=== PATIENT | male | born 1970 | race Caucasian/White ===

== ENCOUNTER → 2017-07-16 | Outpatient (CLI) | payer OTHER ==
--- NOTE | 2017-07-16 13:58 | DIAGNOSTIC IMAGING REPORT ---
VIDEO SWALLOW HISTORY: R13.10 Dysphagia TECHNIQUE: Video fluoroscopic evaluation of swallowing was performed in the AP and lateral projections by the speech pathology staff. The patient is fed nectar-thick and thin liquid barium, a barium coated wafer, and barium pudding. FLUOROSCOPY TIME: 1.6 minutes. A cine loop was submitted.. COMPARISON STUDY: None. FINDINGS: The initial swallow on the AP view demonstrates the barium passing along the right side of the hypopharynx. There is normal hyoid excursion and epiglottic deflection. No significant penetration or aspiration identified. Swallowing function is within normal limits. IMPRESSION: 1. No aspiration identified. Incidental note is made of the barium passing along the right side of the hypopharynx on the initial swallow. This is of uncertain clinical significance and could be related to patient positioning. 2. Please see the speech pathologist report for detailed findings and recommendations. Electronically signed by: Robert Schaefer M.D. 07/16/2017 1:57 PM Dictated Date/Time: 07/16/2017 1:53 PM
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
== END | disposition home or self-care (01) ==
LOC: C.RAD 12:50
PROVIDERS: ATTEND Physician Assistant
DX: R13.10 Dysphagia, unspecified (principal)

== ENCOUNTER → 2017-07-24 | Outpatient (CLI) | payer OTHER ==
--- NOTE | 2017-07-24 11:35 | DIAGNOSTIC IMAGING REPORT ---
(CHEST) THORAX WITHOUT CT DOSE: 912.00 mGy.cm CLINICAL HISTORY: 47 years-old Male with J98.4 Restrictive lung [id number] Chronic coughPatient scheduled. TECHNIQUE: Multiaxial CT images of the chest were performed without contrast. A dose lowering technique was utilized adhering to the principles of ALARA. COMPARISON: None. FINDINGS: No dominant thyroid nodule or pathologic appearing adenopathy identified. Heart is normal in size without pericardial effusion. No thoracic aortic aneurysm identified. There is no pneumothorax or pleural effusion identified. Evaluation of the lungs is limited secondary to respiratory motion. Calcific granuloma the left lower lobe as seen on image 187 series 4. Patchy bibasilar groundglass opacities suggest atelectasis. Linear subsegmental pleural based opacities of the left lung base suggest areas of scarring/atelectasis. No bronchiectasis, honeycombing or significant subpleural reticulation. High-grade narrowing involves the mid trachea at the level of T2 nicely seen on image 55 series 4 with moderate thickening at this area. No focal associated mass identified. No suspicious pulmonary nodules or masses identified. No acute abnormality of the imaged upper abdomen identified. Embolization coils are seen within the distribution of the splenic vein. Nonspecific stranding is seen adjacent to the superior pole left kidney. Soft tissues are unremarkable. Multiple chronic left-sided rib fractures. IMPRESSION: 1. High-grade narrowing of the mid trachea at the level of T2 with moderate tracheal wall thickening. No definite associated mass. Posttraumatic or iatrogenic etiology considered. 2. Limited evaluation of the lung bases secondary to respiratory motion. Mild subsegmental pleural-parenchymal scarring/atelectasis of the left lung base. No honeycombing, traction bronchiectasis or significant subpleural reticulation. 3. No focal airspace consolidation to suggest pneumonia. Electronically signed by: Andrew Zavala M.D. 07/24/2017 11:33 AM Dictated Date/Time: 07/24/2017 11:13 AM
== END | disposition home or self-care (01) ==
LOC: C.CTS 10:38
PROVIDERS: ATTEND Physician Assistant
DX: J98.4 Other disorders of lung (principal); R05 Cough; J39.8 Other specified diseases of upper respiratory tract

== ENCOUNTER → 2017-09-17 | Outpatient (CLI) | payer OTHER ==
[~2017-09-17] MED LIST: CITA20TA9 PO; LISI-461 PO; PRLSR20 PO; RANI150T85 PO
[2017-09-17 15:35] LABS: HEMATOCRIT 41.7 % (42-52); HEMOGLOBIN 14.6 g/dL (14.0-18.0); MEAN CELL VOLUME 80.7 fL (80-100); MEAN CORPUSCULAR HEMOGLOBIN 28.2 pg (25-34); MEAN PLATELET VOLUME 10.2 fL (7.4-10.4); PLATELET COUNT 216 K/uL (130-400); RED CELL DISTRIBUTION WIDTH CV 13.8 % (11.5-14.5); RED CELL DISTRIBUTION WIDTH SD 40.5 fL (36.4-46.3)
[2017-09-17 15:58] LABS: BLOOD UREA NITROGEN 20 mg/dl (7-18); CALCIUM 9.1 mg/dl (8.5-10.1); CARBON DIOXIDE 25 mmol/L (21-32); CREATININE 1.45 mg/dl (0.60-1.40); GLUCOSE 94 mg/dl (70-99); SODIUM 135 mmol/L (136-145)
== END | disposition home or self-care (01) ==
LOC: C.LAB 14:22
PROVIDERS: ATTEND Physician Assistant
DX: J39.8 Other specified diseases of upper respiratory tract (principal)

== ENCOUNTER 2017-09-18 07:50 | Inpatient (IN) | payer OTHER ==
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
[~2017-09-18] VITALS: Ht 175.3 cm; Wt 122.4 kg
[2017-09-18] VITALS (12 sets, daily range): BP systolic 111–149; BP diastolic 63–85; PULSE 57–95; TEMP 36.6–37.3; O2SAT 93–98; Ht 175.3 cm; Wt 122.4 kg
[2017-09-18] MEDS ORDERED: LISI-461 PO (08:34)
[2017-09-18] MEDS ORDERED: CITA20TA9 PO (08:34)
[2017-09-18] MEDS ORDERED: PRLSR20 PO (08:34)
[2017-09-18] MEDS ORDERED: RANI150T85 PO (08:34)
--- NOTE | 2017-09-18 08:43 | History & Physical Bridge Note ---
H&P Re-Evaluation Bridge Note: I have examined the patient, reviewed the History & Physical and in the interval since the performance of the History & Physical I have noted the following changes of clinical significance: No changes noted
--- NOTE | 2017-09-18 08:47 | Pre Sedation Assessment ---
Pre Sedation Assessment General Date of Sedation: Sep 18, 2017. Vital Signs Past 12 Hours Date Time Temp Pulse Resp B/P (MAP) Pulse Ox O2 Delivery O2 Flow Rate FiO2 09/18/17 08:10 36.8 59 18 129/72 (91) 97 Room Air Review Cardiovascular: regular rate, rhythm, no edema, no gallop, no JVD, no murmur, normal peripheral pulses Lungs: chest non-tender, lungs clear, normal breath sounds, no respiratory distress, no accessory muscle use Pre-Sedation Airway Assessment Smoking Status: Former Smoker Hx of Sleep Apnea: Yes Hx of difficult intubation: Yes Short Thick Neck: Yes Thyro-mental Distance: > 3 Finger Breadths Oral Cavity: WNL Mallampati Classification: Class II NPO Status Date of Last Intake of Fluids: Sep 17, 2017 Time of Last Intake of Fluids: 1600 Date of Last Intake of Solids: Sep 17, 2017 Time of Last Intake of Solids: 1700 Procedure Planning Contraindications for Sedation: None Current Medications Reviewed: Yes Notes The planned sedation has been discussed with the patient. Informed Consent was obtained. I have identified the patient, determined the appropriateness of sedation and have assessed the patient immediately prior to the procedure. All medicine(s) and interventions are by my order.
[2017-09-18] MEDS ORDERED: MIDAZOLAM HCL 5 MG/ML 1 ML VIAL IV ONE (09:29)
[2017-09-18] MEDS ORDERED: LIDOCAINE HCL 2% LOCAL 50ML VIAL INSTIL ONE (09:29)
[2017-09-18] MEDS ORDERED: FENTANYL CITRATE INJ 50 MCG/1 ML 2 ML VIAL IV ONE (09:29)
[2017-09-18] MEDS ORDERED: LIDOCAINE 4% INH SOLN 4 ML BTL TOP ONE (09:29)
[2017-09-18] MEDS ORDERED: LIDOCAINE VISCOUS 2% 100ML TOP ONE (09:29)
--- NOTE | 2017-09-18 09:35 | Discharge Instructions ---
Discharge Instructions Date of Service Sep 18, 2017. Admission Reason for Admission: Tracheal Stenosis, Cough, Sob Discharge Discharge Diagnosis / Problem: Tracheal stenosis Discharge Goals Goal(s): Diagnostic testing Activity Recommendations Activity Limitations: resume your previous activity Driving or Machine Use: resume 1 day after discharge . Instructions / Follow-Up Instructions / Follow-Up Follow-up with Dr. Meehan in the pulmonary clinic Current Hospital Diet Patient's current hospital diet: Discharge Diet Recommended Diet: Regular Diet Procedures Procedures Performed: Bronchoscopy with bronchial lavage of the trachea and conscious sedation Pending Studies Studies pending at discharge: no Medical Emergencies . Who to Call and When: Medical Emergencies: If at any time you feel your situation is an emergency, please call 911 immediately. . Non-Emergent Contact Non-Emergency issues call your: Surgeon Call Non-Emergent contact if: temperature is above 101 . . "Provider Documentation" section prepared by Hung Meehan. .
--- NOTE | 2017-09-18 09:41 | Bronchoscopy Procedure Note ---
Bronchoscopy Procedure Note Procedure: Bronchoscopy, conscious sedation, bronchial lavage of the trachea Consent: Obtained through the patient placed into the chart Pre-procedural diagnosis: Tracheal stenosis Post-procedural diagnosis: Tracheal stenosis Start time: 904 End time: 914 Total time: 15 minutes Analgesia: 2% liquid lidocaine: Via nebulizer 4% gel lidocaine: Via right naris 2% liquid lidocaine: Via bronchoscopy Sedation: Versed IV: 3mg Fentanyl IV: 50g Procedure: The Olympus video bronchoscope was used for this procedure and passed down through the right naris Right naris/posterior naris/posterior oropharynx: Anatomically within normal limits Glottis: Anatomically within normal limits Vocal cords: Proper abduction and abduction, anatomically within normal limits Subglottis/trachea/Marissa: Tracheal stenosis approximately the third tracheal ring 1.5 below the level of cricoid 2.5 the true vocal cords with no granulation tissue appreciated appears to be tracheal ring collapse Right bronchial tree: Right mainstem bronchus: Anatomically within normal limits Right upper lobe: Anatomically within normal limits Bronchus intermedius: Anatomically within normal limits Right middle lobe: Anatomically within normal limits Right lower lobe: Anatomically within normal limits Findings: No significant findings noted Left bronchial tree: Left mainstem bronchus: Anatomically within normal limits Left upper lobe: Anatomically within normal limits Lingula: Anatomically within normal limits Left lower lobe: Anatomically within normal limits Findings: No significant findings noted Bronchial alveolar lavage: Trachea EBL: None Complications: None Follow-up: [facility]
--- NOTE | 2017-09-18 09:42 | Post Sedation Assessment ---
Post Sedation Assessment General Date of Sedation Sep 18, 2017. Vital Signs: Vital Signs Past 12 Hours Date Time Temp Pulse Resp B/P (MAP) Pulse Ox O2 Delivery O2 Flow Rate FiO2 09/18/17 09:30 60 16 108/74 95 Nasal Cannula 4 09/18/17 09:25 60 16 124/80 93 Oxymask 6 09/18/17 09:20 59 14 105/69 95 Oxymask 6 09/18/17 09:15 67 15 120/89 96 Oxymask 6 09/18/17 09:10 57 18 118/90 98 Oxymask 6 09/18/17 09:05 60 21 127/81 98 Oxymask 6 09/18/17 09:00 55 21 120/88 98 Oxymask 6 09/18/17 08:10 36.8 59 18 129/72 (91) 97 Room Air Post Procedure Recovery Score Activity: (2) Moves 4 extremities * Respiration: (2) Deep breath/cough Circulation: (2) +/-20% PreAnes Value Consciousness: (1) Arouseable (by name) Oxygen Saturation: (1) O2 needed for >90% Post Anesthesia Score: 8 Discharge Sedation Level of Care: Fast Track Phase II Post Sedation Plan On clinical assessment, the patient appears to have tolerated the sedation without complications. Patient is recovering as anticipated. Patient will continue to be monitored by nursing and may be discharged when sedation discharge criteria are met per below protocol. Upon Completions of procedure and additional 15 minutes continue every 5 minute vital signs and the P.A.R. score; then discharge to a Phase I or Fast Track to Phase II per the following guidelines: * Discharge Patient to appropriate Phase II area if PAR is 8 or greater or return to pre- procedure baseline. The post - procedure orders will be as directed. * If PAR score is less than 8 or not return to pre-procedure baseline then patient will follow Phase I monitoring till PAR is reached for Phase II. The Phase I may be done in procedure room or may call to secure a Phase I area. * If naloxone or flumazenil are used for reversal, hold in Phase I for an additional 60 -120 minutes before discharge to Phase II. Please call the Sedation Physician to re-evaluate and complete post-note for discharge to Phase II area. Do NOT discharge from procedure sedation or Phase 1 until post- sedation evaluation note is complete by procedure /sedation MD Sedation Discharge Instructions to be given to the patient at discharge to home.
[2017-09-18] MEDS ORDERED: MoRPHine SULFATE 2 MG/ML CARP IV PRN (11:30)
[2017-09-18] MEDS ORDERED: ALUMINUM/MAGNESIUM/SIMETH (MAALOX MAX) 30 ML UDC PO PRN (11:30)
[2017-09-18] MEDS ORDERED: MAGNESIUM HYDROXIDE SUSP 30 ML UDC PO PRN (11:30)
[2017-09-18] MEDS ORDERED: ONDANSETRON INJ 2 MG/ML 2 ML VIAL IV PRN (11:30)
[2017-09-18] MEDS ORDERED: POLYETHYLENE (MIRALAX) 17 GM PACK PO PRN (11:30)
[2017-09-18] MEDS ORDERED: ACETAMINOPHEN 325 MG TAB PO PRN (11:30)
[2017-09-18] MEDS ORDERED: ZOLPIDEM TARTRATE 5 MG TAB PO PRN ×2 (11:30)
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
[2017-09-18 13:48] LABS: HEMATOCRIT 39.8 % (42-52); MEAN CELL VOLUME 81.4 fL (80-100); MEAN CORPUSCULAR HEMOGLOBIN 28.6 pg (25-34); MEAN CORPUSCULAR HGB CONC 35.2 g/dl (32-36); MEAN PLATELET VOLUME 10.1 fL (7.4-10.4); PLATELET COUNT 210 K/uL (130-400); RED CELL DISTRIBUTION WIDTH CV 13.7 % (11.5-14.5); RED CELL DISTRIBUTION WIDTH SD 41.3 fL (36.4-46.3); WHITE BLOOD COUNT 8.92 K/uL (4.8-10.8)
[2017-09-18 13:56] LABS: PTT PATIENT 25.6 SECONDS (21.0-31.0)
[2017-09-18 14:07] LABS: CREATININE 1.49 mg/dl (0.60-1.40)
--- NOTE | 2017-09-18 17:31 | DIAGNOSTIC IMAGING REPORT ---
CHEST 2 VIEWS ROUTINE HISTORY: 47 years-old Male cough acute cough COMPARISON: Chest CT 07/24/2017 TECHNIQUE: PA and lateral views of the chest FINDINGS: Cardiomediastinal and hilar silhouettes are within normal limits. No pneumothorax, pleural effusion, focal airspace consolidation or overt pulmonary edema. Unchanged blunting of the left costophrenic angle secondary to underlying pleural parenchymal scarring. Mild right hemidiaphragmatic elevation. Bones of the chest appear grossly intact. Multiple remote healed left-sided rib fractures. Vascular coils of the upper abdomen redemonstrated within the distribution of the splenic artery. IMPRESSION: No acute process. The above report was generated using voice recognition software. It may contain grammatical, syntax or spelling errors. Electronically signed by: Andrew Zavala M.D. 09/18/2017 5:30 PM Dictated Date/Time: 09/18/2017 5:27 PM
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
[2017-09-18] MEDS: ENOXAPARIN 40 MG/0.4 ML SYR SC SCH (20:21)
[2017-09-18] MEDS ORDERED: NURSING VERBAL MED ORDER ONE (20:30)
[2017-09-18] MEDS: RANITIDINE HCL 150 MG TAB PO SCH (21:30)
[2017-09-19] VITALS (7 sets, daily range): BP systolic 111–153; BP diastolic 70–96; PULSE 53–81; TEMP 36.5–37.4; O2SAT 95–98
[2017-09-19] MEDS ORDERED: RANITIDINE HCL 150 MG TAB PO SCH (09:00)
[2017-09-19] MEDS: CITALOPRAM 20 MG TAB PO SCH (09:03)
[2017-09-19] MEDS: LOSARTAN POTASSIUM 25 MG TAB PO SCH (09:03)
[2017-09-19] MEDS: PANTOprazole SOD 40 MG TAB PO SCH (09:03)
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
[2017-09-19 09:23] LABS: CREATININE 1.43 mg/dl (0.60-1.40); POTASSIUM 3.7 mmol/L (3.5-5.1)
--- NOTE | 2017-09-19 10:18 | SURGERY PROGRESS NOTE ---
DATE: 09/19/2017 Mr. Ferrell is seen today. I discussed his case with multiple members of the anesthesia department. We are going to do a tracheal resection tomorrow morning. His cricoid cartilage is intact but we will have to resect at least one ring. I believe he is a good candidate for this. I will talk to his sister in more detail about this later.
--- NOTE | 2017-09-19 17:26 | Hospitalist Progress Note ---
Hospitalist Progress Note Date of Service Sep 19, 2017. (Daniella Rodríguez CRNP) Subjective Pt evaluation today including: conversation w/ patient, physical exam, chart review, lab review, review of inpatient medication list Voiding: no voiding problems Mr. Ferrell is very pleasant though he does have some memory issues especially with short term recall. He has been sob but it has not worsened today than it has been recently. No cough. ROS Constitutional: no chills, aches, sweats or fever Respiratory: see HPI Cardiac: no chest pain, palpitations, edema, orthopnea or lightheadedness GI: no abdominal pain, nausea, vomiting, diarrhea or constipation : no dysuria or hesitancy Extremities: no joint pain or weakness Skin: no rash All other systems reviewed and negative (Daniella Rodríguez CRNP) Medications Medications Administered Medications (Trade) Dose Ordered Sig/John Route Start Time Stop Time Status Last Admin Dose Admin Midazolam HCl (Versed Inj) 3 mg ONE ONCE IV 09/18/17 09:29 09/18/17 09:32 DC 09/18/17 09:29 3 MG Fentanyl Citrate (Fentanyl Inj) 50 mcg ONE ONCE IV 09/18/17 09:29 09/18/17 09:32 DC 09/18/17 09:29 50 MCG Lidocaine HCl (Lidocaine 4% Inh Soln) 4 ml ONE ONCE TOP 09/18/17 09:29 09/18/17 09:32 DC 09/18/17 09:29 4 ML Lidocaine HCl (VISCOUS LIDOCAINE 2% Soln) 2 ml ONE ONCE TOP 09/18/17 09:29 09/18/17 09:32 DC 09/18/17 09:29 2 ML Lidocaine HCl (Lidocaine 2% Preserved Inj) 20 ml ONE ONCE INSTIL 09/18/17 09:29 09/18/17 09:32 DC 09/18/17 09:29 20 ML Citalopram Hydrobromide (celeXA TAB) 20 mg DAILY PO 09/19/17 09:00 10/19/17 08:59 09/19/17 09:03 20 MG Pantoprazole Sodium (Protonix Tab) 40 mg DAILY PO 09/19/17 09:00 10/19/17 08:59 09/19/17 09:03 40 MG Losartan Potassium (coZAAR TAB) 25 mg QAM PO 09/19/17 09:00 10/19/17 08:59 09/19/17 09:03 25 MG Enoxaparin Sodium (Lovenox Inj) 40 mg HS SC 09/18/17 21:00 10/18/17 20:59 09/18/17 20:21 40 MG Ranitidine HCl (zANTac TAB) 150 mg HS PO 09/18/17 21:00 10/18/17 20:59 09/18/17 21:30 150 MG (Daniella Rodríguez CRNP) Objective Vital Signs Date Time Temp Pulse Resp B/P (MAP) Pulse Ox O2 Delivery O2 Flow Rate FiO2 09/19/17 15:12 36.5 71 17 141/92 (108) 97 Room Air 09/19/17 12:00 37.4 81 20 119/82 (94) 96 Room Air 09/19/17 12:00 Room Air 09/19/17 08:00 36.7 61 18 123/82 (96) 98 Room Air 61 09/19/17 08:00 Room Air 09/19/17 04:00 Room Air 09/19/17 03:48 36.7 53 19 111/71 (84) 95 Room Air 09/19/17 00:20 36.6 53 17 111/70 (84) 95 Room Air 09/19/17 00:01 Room Air 09/18/17 20:00 Room Air 09/18/17 19:04 36.9 67 19 111/63 (79) 96 Room Air (Daniella Rodríguez CRNP) Physical Exam Notes: General: no distress Eyes: normal inspection, PERLL Respiratory: chest non tender, mild inspiratory stridor, clear to auscultation, normal breath sounds, no respiratory distress, no accessory muscle use Cardiac: regular rate and rhythm, no rub or gallop, no murmur, no edema, no jvd GI/: active bowel sounds, no abd pain or tenderness, soft, non distended Extremities: normal range of motion, normal strength, non tender Neuro/Psych: alert and oriented x 3, normal mood and affect Skin: normal color, dry (Daniella Rordíguez CRNP) Laboratory Results Last 24 Hours Test 09/19/17 08:50 Sodium Level 134 mmol/L Potassium Level 3.7 mmol/L Chloride Level 101 mmol/L Carbon Dioxide Level 26 mmol/L Anion Gap 7.0 mmol/L Blood Urea Nitrogen 15 mg/dl Creatinine 1.43 mg/dl Est Creatinine Clear Calc Drug Dose 80.4 ml/min Estimated GFR () 66.6 Estimated GFR (Non- 57.5 BUN/Creatinine Ratio 10.6 Random Glucose 114 mg/dl Calcium Level 9.0 mg/dl (Daniella Rodríguez CRNP) Assessment and Plan Mr. Ferrell is a 47 year old man here for severe tracheal stenosis Trachea stenosis - no events on telemetry - patient has no cardiac history per chart review though he does have history of restrictive lung disease, he does have baseline sob likely due to his tracheal stenosis, his RCRI is calculated to be 0.4%. Patient is optimized for surgery - EKG showed NSR, CXR was negative for acute process - continue O2 per protocol - patient will go to ICU following surgery, herd tester is consulted. - patient is post bronchoscopy with Dr Meehan - showed tracheal stenosis Acute vs CKD - Creat is 1.49 - no creat previous to this admission to compare, will trend HTN - continue losartan GERD - continue ranitidine, protonix Full code Enoxaprin, SCDS (Daniella Rodríguez CRNP) Reviewed: Pt Seen/Exam by Me (Mimi Mathias MD) History [employer]AD[employer] INTERN Supervision Note: I interviewed and examined the patient. Discussed with KIKI Rodríguez and agree with findings and plan as documented in the note. Any exceptions or clarifications are listed here: Pt has no complaints. Is a bit anxious about his surgery tomorrow. Vitals reviewed NAD, AAOx3 RRR no mgr CTAB no wcr, no stridor noted Abd +BS soft NT ND Ext no edema 47 yo male with h/o HTN, tracheal stenosis s/p trauma, TBI, cognitive impairment , here with severe tracheal stenosis requiring surgical repair. Plan for surgery tomorrow, NPO after midnight Will go to ICU post-op At average risk for this intermediate risk surgery and has no cardiac complaints , can achieve at least 4 METS, no cardiac history. 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 Otherwise, would be happy to continue following him. Documented By: Mimi Mathias (Mimi Mathias MD)
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
[2017-09-19] MEDS: RANITIDINE HCL 150 MG TAB PO SCH (20:38)
[2017-09-19] MEDS: ENOXAPARIN 40 MG/0.4 ML SYR SC SCH (20:38)
[2017-09-20] VITALS (19 sets, daily range): BP systolic 100–142; BP diastolic 58–90; PULSE 59–85; TEMP 36.6–37.1; O2SAT 94–97
[2017-09-20] MEDS ORDERED: DEXAMETHASONE SOD INJ 4 MG/ML VIAL ONE (06:31)
[2017-09-20] MEDS ORDERED: LIDOCAINE HCL 2% 2 ML VIAL (20MG/ML) ONE (06:31)
[2017-09-20] MEDS ORDERED: MIDAZOLAM HCL 1 MG/ML 2ML VIAL ONE ×2 (06:31→09:29)
[2017-09-20] MEDS ORDERED: ONDANSETRON INJ 2 MG/ML 2 ML VIAL ONE ×2 (06:31→12:59)
[2017-09-20] MEDS ORDERED: PROPOFOL IV EMULSION 10 MG/ML 20 ML VIAL IV ONE ×2 (06:31→12:58)
[2017-09-20] MEDS ORDERED: ROCURONIUM BROMIDE 10 MG/ML 5 ML VIAL IV ONE (06:31)
[2017-09-20] MEDS ORDERED: DexMEDEtomidine HCL IV 100 MCG/ML VIAL IV ONE ×2 (06:57→13:14)
[2017-09-20] MEDS ORDERED: BUPIVACAINE 0.5 % 5 MG/1 ML MPF 30ML VIAL ONE (07:43)
[2017-09-20] MEDS ORDERED: LIDOCAINE HCL 1% 20 ML VIAL ONE (07:43)
[2017-09-20] MEDS ORDERED: THROMBIN FOR SOLN 20000 UNIT KIT ONE (07:43)
[2017-09-20] MEDS ORDERED: GELATIN SPONGE SZ 100 ONE (07:43)
[2017-09-20] MEDS ORDERED: KETOROLAC TROMETHAMINE 30 MG/ML VIAL IV. PRN (08:00)
[2017-09-20] MEDS ORDERED: HYDROmorphone INJ 2 MG/ML SYR/VIAL IV PRN (08:00)
[2017-09-20] MEDS ORDERED: ONDANSETRON INJ 2 MG/ML 2 ML VIAL IV PRN (08:00)
[2017-09-20] MEDS ORDERED: ATROPINE SULFATE 0.1 MG/ML 5ML SYR IV PRN (08:00)
[2017-09-20] MEDS ORDERED: BUPIVACAINE LIPOSOME 1/3% 266 MG/20 ML VIAL INFIL ONE (08:28)
[2017-09-20] MEDS ORDERED: SODIUM CHLORIDE 0.9% PF 50 ML VIAL ONE (08:28)
[2017-09-20] MEDS ORDERED: BUPIVACAINE 0.25% 30 ML VIAL ONE ×2 (08:47→09:50)
[2017-09-20] MEDS: PANTOprazole SOD 40 MG TAB PO SCH (09:00)
[2017-09-20] MEDS: LOSARTAN POTASSIUM 25 MG TAB PO SCH (09:00)
[2017-09-20] MEDS: CITALOPRAM 20 MG TAB PO SCH (09:00)
[2017-09-20] MEDS ORDERED: VANCOMYCIN HCL 1000MG/20ML VIAL ONE (09:31)
[2017-09-20] MEDS ORDERED: GENTAMICIN SULFATE 40 MG/ML 2 ML VIAL ONE (09:32)
[2017-09-20] MEDS ORDERED: GLYCOPYRROLATE INJ 0.2 MG/ML VIAL ONE ×2 (10:02→12:58)
[2017-09-20] MEDS ORDERED: EpHEDrine SULFATE 50MG/5ML SYR ONE (10:58)
[2017-09-20] MEDS ORDERED: FENTANYL CITRATE INJ 50 MCG/1 ML 2 ML VIAL ONE ×2 (11:06→13:05)
[2017-09-20] MEDS ORDERED: NEOSTIGMINE METHYLSULFATE 5 MG/5 ML SYR ONE (12:58)
--- NOTE | 2017-09-20 13:07 | [facility] Post Operative Brief Note ---
Immediate Operative Summary Operative Date Sep 20, 2017. Pre-Operative Diagnosis Tracheal stenosis Post-Operative Diagnosis Same Procedure(s) Performed Bronchoscopy with bronchial lavage of the trachea and conscious sedation Tracheal resection Surgeon Dr. Juan Antonio Castro MD [employer] Surgeon(s) Anselmo Sears PA-C Estimated Blood Loss 50 Findings Consistent with Post-Op Diagnosis Specimens TRACHEAL WASHING / Tracheal segment Drains None Anesthesia Type General Complication(s) none Disposition Disposition: Surgical ICU
[2017-09-20] MEDS ORDERED: OXYCODONE HCL IR 5 MG TAB (IMMEDIATE RELEASE) PO PRN (13:30)
[2017-09-20] MEDS ORDERED: MoRPHine SULFATE 2 MG/ML CARP IV PRN (13:30)
--- NOTE | 2017-09-20 14:17 | DIAGNOSTIC IMAGING REPORT ---
CHEST ONE VIEW PORTABLE HISTORY: 47 years-old Male tracheal resection status post tracheal resection COMPARISON: Chest radiograph 09/18/2017, chest CT 07/24/2017 TECHNIQUE: Portable AP view of the chest FINDINGS: There is globular morphology of the heart which demonstrates increased size from comparison study. Additionally, there is lucency surrounding the heart compatible with pneumomediastinum and probable pneumopericardium is also noted with subcutaneous air noted about the bilateral neck. Radiodense material is seen at the level of the neck base which may be postsurgical. No definite pneumothorax. The lungs are hypoinflated with bronchovascular crowding, hazy perihilar and left basilar opacities suggesting atelectasis. Mild right hemidiaphragmatic elevation. There is mediastinal widening measuring 10 cm transversely. Bones appear grossly intact. IMPRESSION: 1. Pneumomediastinum with suggested pneumopericardium and mediastinal widening, likely postsurgical. 2. Radiodense material at the level of the neck base is also likely postsurgical. 3. Hypoinflation with perihilar and left basilar opacities suggesting atelectasis. 4. Increased size of the cardiac silhouette may reflect pericardial effusion. The above report was generated using voice recognition software. It may contain grammatical, syntax or spelling errors. Electronically signed by: Andrew Zavala M.D. 09/20/2017 2:16 PM Dictated Date/Time: 09/20/2017 2:11 PM
--- NOTE | 2017-09-20 14:24 | Anesthesiology Progress Note ---
Anesthesia Post Op Note Date & Time Sep 20, 2017 at 14:24 Vital Signs Pain Intensity: 2 Vital Signs Past 12 Hours Date Time Temp Pulse Resp B/P (MAP) Pulse Ox O2 Delivery O2 Flow Rate FiO2 09/20/17 14:21 36.6 95 Oxymask 5 09/20/17 14:19 60 15 97 09/20/17 14:19 61 15 09/20/17 14:16 113/70 09/20/17 14:14 61 15 95 09/20/17 14:14 61 15 09/20/17 14:11 119/77 09/20/17 14:09 60 15 09/20/17 14:09 60 15 98 09/20/17 14:08 60 16 97 09/20/17 14:08 60 16 09/20/17 14:06 125/73 09/20/17 14:03 64 21 97 09/20/17 14:03 66 21 09/20/17 14:01 116/74 09/20/17 13:58 58 16 95 09/20/17 13:58 59 16 09/20/17 13:56 103/65 09/20/17 13:53 57 15 95 09/20/17 13:53 57 15 09/20/17 13:51 99/59 09/20/17 13:49 108/67 09/20/17 13:48 36.0 56 16 108/67 96 Oxymask 10 09/20/17 13:48 62 21 09/20/17 13:48 61 21 94 09/20/17 07:42 Room Air 09/20/17 07:37 36.6 59 18 142/90 (107) 94 Room Air 09/20/17 04:02 Room Air 09/20/17 03:31 37.0 60 16 114/64 (81) 95 Room Air Notes Mental Status: alert / awake / arousable, participated in evaluation Pt Amnestic to Procedure: Yes Nausea / Vomiting: adequately controlled Pain: adequately controlled Airway Patency, RR, SpO2: stable & adequate BP & HR: stable & adequate Hydration State: stable & adequate Anesthetic Complications: no major complications apparent
[2017-09-20] MEDS: HYDROCODONE/HOMATROPINE SYRUP 5MG/1.5MG 5ML UDP PO SCH ×2 (15:00→19:43)
[2017-09-20] MEDS: D5W AND 1/2NSS 1,000 ML IV SCH (15:01)
[2017-09-20] MEDS: ACETAMINOPHEN IV 1,000 MG in EMPTY BAG 0 ML IV SCH ×2 (15:01→21:26)
[2017-09-20] MEDS: KETOROLAC TROMETHAMINE 15 MG/ML VIAL IV. SCH ×2 (15:02→21:27)
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
[2017-09-20] MEDS: DOCUSATE SODIUM 100 MG CAP PO SCH ×2 (21:00→21:26)
[2017-09-20] MEDS: MUPIROCIN 2% OINT 22 GM TUBE EXT SCH (21:26)
[2017-09-20] MEDS: METOCLOPRAMIDE HCL INJ 5 MG/ML 2 ML VIAL IV. SCH (21:27)
[2017-09-21] VITALS (25 sets, daily range): BP systolic 110–161; BP diastolic 60–97; PULSE 60–76; TEMP 36.6–37.2; O2SAT 91–96
[2017-09-21] MEDS: D5W AND 1/2NSS 1,000 ML IV SCH (00:09)
[2017-09-21] MEDS: HYDROCODONE/HOMATROPINE SYRUP 5MG/1.5MG 5ML UDP PO SCH ×4 (01:30→19:59)
[2017-09-21] MEDS: METOCLOPRAMIDE HCL INJ 5 MG/ML 2 ML VIAL IV. SCH ×2 (05:15→14:02)
[2017-09-21] MEDS: KETOROLAC TROMETHAMINE 15 MG/ML VIAL IV. SCH ×3 (05:15→21:59)
[2017-09-21] MEDS: ACETAMINOPHEN IV 1,000 MG in EMPTY BAG 0 ML IV SCH ×3 (05:15→21:57)
[2017-09-21 06:04] LABS: EOS % 0.1 %; EOS ABS # 0.01 K/uL (0-0.5); HEMATOCRIT 36.4 % (42-52); HEMOGLOBIN 12.7 g/dL (14.0-18.0); IG# 0.02 K/uL (0.00-0.02); LYMPH % 16.5 %; LYMPH ABS # 1.52 K/uL (1.2-3.4); MEAN CELL VOLUME 80.9 fL (80-100); MEAN CORPUSCULAR HEMOGLOBIN 28.2 pg (25-34); MEAN CORPUSCULAR HGB CONC 34.9 g/dl (32-36); MEAN PLATELET VOLUME 9.5 fL (7.4-10.4); MONO % 10.3 %; MONO ABS # 0.95 K/uL (0.11-0.59); NEUT % 72.9 %; NEUT ABS # 6.74 K/uL (1.4-6.5); PLATELET COUNT 199 K/uL (130-400); RED CELL DISTRIBUTION WIDTH CV 13.9 % (11.5-14.5); WHITE BLOOD COUNT 9.24 K/uL (4.8-10.8)
[2017-09-21 06:38] LABS: CALCIUM 8.5 mg/dl (8.5-10.1); CREATININE 1.43 mg/dl (0.60-1.40); POTASSIUM 3.8 mmol/L (3.5-5.1)
--- NOTE | 2017-09-21 06:59 | SURGERY PROGRESS NOTE ---
DATE: 09/21/2017 Mr. Ferrell looks quite good this morning. He is sitting up in a chair. He is tolerating regular diet. He has been afebrile with stable vitals. He really has not had that much coughing. His x-ray looks quite good today. His labs look good. He is voiding well. His suture has remained intact. He has not hyperextend his neck. He is not having much in the way of pain. I think his breath sounds are quite good. He is not draining from his incision. ASSESSMENT AND PLAN: Postoperative day #1 status post tracheal resection for marked stenosis. I would like to keep him in the unit for 1 more day so that we can keep an eye on him. Our plan is for bronchoscopy by Dr. Hung Meehan on Saturday09/24/2017 and if this looks good, we will cut the suture.
--- NOTE | 2017-09-21 07:07 | DIAGNOSTIC IMAGING REPORT ---
CHEST ONE VIEW PORTABLE CLINICAL HISTORY: tracheal resection postoperative evaluation COMPARISON STUDY: 09/20/2017 FINDINGS: Improved exam. Improved aeration of both hemithoraces. Moderately diminished pneumomediastinum no evidence pneumothorax. IMPRESSION: Improved exam with a decrease in prominence of the patient's pneumomediastinum. Lungs are grossly clear currently. The above report was generated using voice recognition software. It may contain grammatical, syntax or spelling errors. Electronically signed by: Cameron Angel M.D. 09/21/2017 7:05 AM Dictated Date/Time: 09/21/2017 7:04 AM
[2017-09-21] MEDS: CITALOPRAM 20 MG TAB PO SCH (08:24)
[2017-09-21] MEDS: MUPIROCIN 2% OINT 22 GM TUBE EXT SCH ×2 (08:25→19:58)
[2017-09-21] MEDS: PANTOprazole SOD 40 MG TAB PO SCH (08:25)
[2017-09-21] MEDS: LOSARTAN POTASSIUM 25 MG TAB PO SCH (08:25)
[2017-09-21] MEDS: ENOXAPARIN 40 MG/0.4 ML SYR SQ SCH (08:25)
[2017-09-21] MEDS: DOCUSATE SODIUM 100 MG CAP PO SCH ×2 (08:25→19:58)
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
[2017-09-22] VITALS (10 sets, daily range): BP systolic 132–154; BP diastolic 78–91; PULSE 64–87; TEMP 36.6–37.4; O2SAT 92–96
[2017-09-22] MEDS: HYDROCODONE/HOMATROPINE SYRUP 5MG/1.5MG 5ML UDP PO SCH ×4 (01:33→21:31)
[2017-09-22] MEDS: ACETAMINOPHEN IV 1,000 MG in EMPTY BAG 0 ML IV SCH (05:43)
[2017-09-22] MEDS: KETOROLAC TROMETHAMINE 15 MG/ML VIAL IV. SCH (05:44)
[2017-09-22 06:15] LABS: BASO % 0.2 %; BASO ABS # 0.02 K/uL (0-0.2); EOS % 2.5 %; HEMATOCRIT 35.7 % (42-52); HEMOGLOBIN 12.1 g/dL (14.0-18.0); IG# 0.02 K/uL (0.00-0.02); LYMPH % 16.7 %; LYMPH ABS # 1.35 K/uL (1.2-3.4); MEAN CELL VOLUME 82.1 fL (80-100); MEAN CORPUSCULAR HEMOGLOBIN 27.8 pg (25-34); MEAN CORPUSCULAR HGB CONC 33.9 g/dl (32-36); MEAN PLATELET VOLUME 9.8 fL (7.4-10.4); MONO % 11.5 %; MONO ABS # 0.93 K/uL (0.11-0.59); NEUT % 68.9 %; NEUT ABS # 5.57 K/uL (1.4-6.5); PLATELET COUNT 192 K/uL (130-400); RED CELL DISTRIBUTION WIDTH SD 42.4 fL (36.4-46.3); WHITE BLOOD COUNT 8.09 K/uL (4.8-10.8)
[2017-09-22 06:33] LABS: CALCIUM 8.5 mg/dl (8.5-10.1); CREATININE 1.37 mg/dl (0.60-1.40)
[2017-09-22] MEDS: ENOXAPARIN 40 MG/0.4 ML SYR SQ SCH (07:42)
[2017-09-22] MEDS: MUPIROCIN 2% OINT 22 GM TUBE EXT SCH ×3 (07:43→21:36)
[2017-09-22] MEDS: PANTOprazole SOD 40 MG TAB PO SCH (07:43)
[2017-09-22] MEDS: CITALOPRAM 20 MG TAB PO SCH (07:43)
[2017-09-22] MEDS: LOSARTAN POTASSIUM 25 MG TAB PO SCH (07:43)
[2017-09-22] MEDS: DOCUSATE SODIUM 100 MG CAP PO SCH ×2 (07:43→21:32)
--- NOTE | 2017-09-22 08:00 | SURGERY PROGRESS NOTE ---
DATE: 09/22/2017 Mr. Ferrell is sitting up at the bedside. He is tolerating clear liquids well. We are going to liberalize his diet today. He looks very good. He has been afebrile. He has stable vital signs. He has been making good urine. He is much more comfortable than yesterday. He still has a few rhonchi as he is trying to suppress his cough. He has tolerated having his chin sutured to the chest quite nicely. His labs look quite good. His incision is clean and we changed the dressing today. He was a bit worried about his creatinine as it was as high as 1.49 and it is down to 1.37 today. His sodium is up to 135 from 133 yesterday. He is on room air. Overall, he looks quite good and is in good spirits. ASSESSMENT AND PLAN: Postoperative day #2 status post resection of a tracheal fracture with primary anastomosis. I am going to move him up to the third floor. We will have Dr. Meehan bronchoscope him to assess his tracheal repair on Saturday, the and if it looks good, we will cut the suture up to his chin. Overall, I am quite pleased with this case. JEFF
[2017-09-22] MEDS: LISINOPRIL 10 MG TAB PO SCH (10:23)
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
[2017-09-23] MEDS: HYDROCODONE/HOMATROPINE SYRUP 5MG/1.5MG 5ML UDP PO SCH ×4 (01:18→20:06)
--- NOTE | 2017-09-23 01:23 | Progress Note ---
Post ICU Progress Note Date & Time Sep 23, 2017 at 01:20 Vital Signs Vital Signs Past 12 Hours Date Time Temp Pulse Resp B/P (MAP) Pulse Ox O2 Delivery O2 Flow Rate FiO2 09/23/17 00:15 Room Air 09/22/17 23:47 37.4 65 18 141/78 (99) 94 Room Air 09/22/17 15:17 36.8 87 18 148/84 (105) 94 Room Air 09/22/17 15:15 Room Air Notes Mental Status: see Notes Nausea / Vomiting: adequately controlled Pain: adequately controlled Airway Patency, RR, SpO2: stable & adequate BP & HR: stable & adequate Patient is a 47-year-old male who was initially admitted to the ICU postoperatively after tracheal revision with the anastomosis. He was monitored closely for surgical disruption or airway compromise. He had 2 uneventful nights in the ICU. He had been able to ambulate the ambriz without issue. He offered no significant complaints throughout his stay. Per surgeon's records, patient continues to improve and has a planned postoperative bronchoscopy which is scheduled for this Saturday. Patient was sleeping on my evaluation. Resting comfortably with no nursing notes to suggest other complaints. Consider outpatient follow up in 1 to 2 weeks with: Thoracic Surgery, Pulmonary Repeat imaging needed: Per Surgical Team Follow up cultures: None at this time. Reviewed progress notes, labs, and inpatient medication list Continue current management Additional recommendations: None at this time. Thank you for allowing us to participate in the care of this patient. At this time, Critical Care Services will sign off on this case. Please feel free to reconsult as needed.
--- NOTE | 2017-09-23 07:18 | DIAGNOSTIC IMAGING REPORT ---
CHEST ONE VIEW PORTABLE CLINICAL HISTORY: s/p tracheal resection postoperative evaluation COMPARISON STUDY: 09/21/2017 FINDINGS: Minimal residual pneumomediastinum. No significant cardiomegaly. Accentuation of the basilar parenchymal markings. Lungs otherwise are clear. IMPRESSION: Stable postoperative evaluation of the chest. Minimal residual pneumomediastinum. The above report was generated using voice recognition software. It may contain grammatical, syntax or spelling errors. Electronically signed by: Cameron Angel M.D. 09/23/2017 7:17 AM Dictated Date/Time: 09/23/2017 7:16 AM
[2017-09-23 07:53] VITALS: BP 130/76; PULSE 65; TEMP 36.6; O2SAT 93
[2017-09-23 07:56] VITALS: O2SAT 93
--- NOTE | 2017-09-23 08:01 | Anesthesiology Progress Note ---
Anesthesia Post Op Note Date & Time Sep 23, 2017 at 07:58 Vital Signs Pain Intensity: 0.0 Vital Signs Past 12 Hours Date Time Temp Pulse Resp B/P (MAP) Pulse Ox O2 Delivery O2 Flow Rate FiO2 09/23/17 07:56 93 Room Air 09/23/17 07:53 36.6 65 13 130/76 (94) 93 Room Air 09/23/17 00:15 Room Air 09/22/17 23:47 37.4 65 18 141/78 (99) 94 Room Air Notes Pt sleeping comfortably in room. Resting on RA and clean dressing to neck. Opened eyes briefly but wanted to sleep.
[2017-09-23] MEDS: CITALOPRAM 20 MG TAB PO SCH (09:01)
[2017-09-23] MEDS: MUPIROCIN 2% OINT 22 GM TUBE EXT SCH ×2 (09:01→20:18)
[2017-09-23] MEDS: LISINOPRIL 10 MG TAB PO SCH (09:02)
[2017-09-23] MEDS: ENOXAPARIN 40 MG/0.4 ML SYR SQ SCH (09:02)
[2017-09-23] MEDS: DOCUSATE SODIUM 100 MG CAP PO SCH ×2 (09:02→20:18)
[2017-09-23] MEDS: PANTOprazole SOD 40 MG TAB PO SCH (09:03)
[2017-09-23] MEDS: LOSARTAN POTASSIUM 25 MG TAB PO SCH (09:03)
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
--- NOTE | 2017-09-23 13:26 | SURGERY PROGRESS NOTE ---
DATE: 09/23/2017 Mr. Ferrell was seen today on postop day #3 status post tracheal resection with primary anastomosis for second and third tracheal ring stenosis status post fracture. Mr. Ferrell looks good. He is walking in the hallway. He is on room air. He is tolerating a diet. He is uncomfortable having his chin sutured to his chest, so he must keep his neck flexed at all times, but I am pleased with how well his incision looks. His x-ray today looks quite good. He has been afebrile with stable vital signs. Overall, I am quite happy with him. Dr. Hung Meehan is performing a bronchoscopy tomorrow and then we will cut the suture and keep an eye on him for a day or two, and if things go well, let him go home. I am quite pleased with him to this point. Pathology, of course, is still pending.
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
[2017-09-23 15:08] VITALS: BP 127/77; PULSE 60; TEMP 36.9; O2SAT 95
[2017-09-23 23:03] VITALS: BP 131/86; PULSE 60; TEMP 37.1; O2SAT 95
[2017-09-24] VITALS (10 sets, daily range): BP systolic 126–148; BP diastolic 76–89; PULSE 56–89; TEMP 36.8–37; O2SAT 92–98
[2017-09-24] MEDS: HYDROCODONE/HOMATROPINE SYRUP 5MG/1.5MG 5ML UDP PO SCH ×4 (01:30→19:17)
--- NOTE | 2017-09-24 09:14 | SURGERY PROGRESS NOTE ---
DATE: 09/24/2017 Mr. Ferrell was seen today. He looks good. His incision looks good. He really has no complaints. He is scheduled for bronchoscopy by Dr. Meehan this morning to assess his site. He is afebrile. His heart rate in the 50s and 60s. He is anywhere from 94-95% on room air with a respiratory rate of 15. His lungs sound good and his x-ray from yesterday looks quite good. If his bronchoscopy look good, we will cut the suture which is keeping his neck in a flexed position and allow him some more movement of his neck.
--- NOTE | 2017-09-24 09:22 | Pre Sedation Assessment ---
Pre Sedation Assessment General Date of Sedation: Sep 24, 2017. Vital Signs Past 12 Hours Date Time Temp Pulse Resp B/P (MAP) Pulse Ox O2 Delivery O2 Flow Rate FiO2 09/24/17 09:08 62 18 130/88 99 Mask 8 09/24/17 08:00 36.9 57 15 127/86 (100) 94 Room Air 09/23/17 23:58 Room Air 09/23/17 23:03 37.1 60 16 131/86 (101) 95 Room Air Review Cardiovascular: regular rate, rhythm, no edema, no gallop, no JVD, no murmur, normal peripheral pulses Lungs: chest non-tender, lungs clear, normal breath sounds, no respiratory distress, no accessory muscle use Pre-Sedation Airway Assessment Smoking Status: Former Smoker Hx of Sleep Apnea: Yes Hx of difficult intubation: Yes Short Thick Neck: Yes Thyro-mental Distance: < or =3 Finger Breadths Oral Cavity: WNL Mallampati Classification: Class II ASA Classification: Class II NPO Status Date of Last Intake of Fluids: Sep 24, 2017 Time of Last Intake of Fluids: 0000 Date of Last Intake of Solids: Sep 24, 2017 Time of Last Intake of Solids: 0000 Procedure Planning Contraindications for Sedation: None Current Medications Reviewed: Yes Notes The planned sedation has been discussed with the patient. Informed Consent was obtained. I have identified the patient, determined the appropriateness of sedation and have assessed the patient immediately prior to the procedure. All medicine(s) and interventions are by my order.
[2017-09-24] MEDS ORDERED: LIDOCAINE VISCOUS 2% 100ML TOP ONE (09:44)
[2017-09-24] MEDS ORDERED: LIDOCAINE HCL 2% LOCAL 50ML VIAL INSTIL ONE (09:44)
[2017-09-24] MEDS ORDERED: LIDOCAINE 4% INH SOLN 4 ML BTL TOP ONE (09:44)
[2017-09-24] MEDS ORDERED: MIDAZOLAM HCL 5 MG/ML 1 ML VIAL IV ONE (09:44)
[2017-09-24] MEDS ORDERED: FENTANYL CITRATE INJ 50 MCG/1 ML 2 ML VIAL IV ONE (09:44)
--- NOTE | 2017-09-24 09:47 | Post Sedation Assessment ---
Post Sedation Assessment General Date of Sedation Sep 24, 2017. Vital Signs: Vital Signs Past 12 Hours Date Time Temp Pulse Resp B/P (MAP) Pulse Ox O2 Delivery O2 Flow Rate FiO2 09/24/17 09:40 64 18 112/76 95 Mask 8 09/24/17 09:35 66 16 144/94 98 Mask 8 09/24/17 09:30 64 20 121/90 98 Mask 8 09/24/17 09:25 61 18 138/78 99 Mask 8 09/24/17 09:20 61 18 130/85 99 Mask 8 09/24/17 09:08 62 18 130/88 99 Mask 8 09/24/17 08:00 36.9 57 15 127/86 (100) 94 Room Air 09/23/17 23:58 Room Air 09/23/17 23:03 37.1 60 16 131/86 (101) 95 Room Air Post Procedure Recovery Score Activity: (2) Moves 4 extremities * Respiration: (2) Deep breath/cough Circulation: (2) +/-20% PreAnes Value Consciousness: (1) Arouseable (by name) Oxygen Saturation: (1) O2 needed for >90% Post Anesthesia Score: 8 Discharge Sedation Level of Care: Fast Track Phase II Post Sedation Plan On clinical assessment, the patient appears to have tolerated the sedation without complications. Patient is recovering as anticipated. Patient will continue to be monitored by nursing and may be discharged when sedation discharge criteria are met per below protocol. Upon Completions of procedure and additional 15 minutes continue every 5 minute vital signs and the P.A.R. score; then discharge to a Phase I or Fast Track to Phase II per the following guidelines: * Discharge Patient to appropriate Phase II area if PAR is 8 or greater or return to pre- procedure baseline. The post - procedure orders will be as directed. * If PAR score is less than 8 or not return to pre-procedure baseline then patient will follow Phase I monitoring till PAR is reached for Phase II. The Phase I may be done in procedure room or may call to secure a Phase I area. * If naloxone or flumazenil are used for reversal, hold in Phase I for an additional 60 -120 minutes before discharge to Phase II. Please call the Sedation Physician to re-evaluate and complete post-note for discharge to Phase II area. Do NOT discharge from procedure sedation or Phase 1 until post- sedation evaluation note is complete by procedure /sedation MD Sedation Discharge Instructions to be given to the patient at discharge to home.
--- NOTE | 2017-09-24 09:52 | Bronchoscopy Procedure Note ---
Bronchoscopy Procedure Note Procedure: Bronchoscopy, conscious sedation, tracheal washing Consent: Obtained through the patient placed into the chart Pre-procedural diagnosis: Tracheal stenosis Post-procedural diagnosis: Tracheal stenosis Start time: 924 End time: 939 Total time: 15 minutes Analgesia: 2% liquid lidocaine: Via nebulizer 4% gel lidocaine: Via right naris 2% liquid lidocaine: Via bronchoscopy Sedation: Versed IV: 3mg Fentanyl IV: 50g Procedure: The Olympus video bronchoscope was used for this procedure and passed down through the right naris Right naris/posterior naris/posterior oropharynx: Anatomically within normal limits, at the takeoff to the right naris to the medial border showed some mild scar tissue/erythema most likely from nasal cannula use Glottis: Anatomically within normal limits Vocal cords: Proper abduction and abduction, anatomically within normal limits Subglottis: Anatomically within normal limits Trachea: Approximately 2.5 cm below the level of the true vocal cords the area of surgical resection such and granulomatous tissue. No granulomatous tissue creating oval like ring which is approximately 7 mmx 10mm, the the proximal distal length of the granuloma was approximately 5 mm ENB evaluation: Showed good blood flow throughout the trachea except for the granulomatous tissue itself Sutures: There is no signs of breakdown or infection along the surgical resected site Marissa: Anatomically within normal limits Right bronchial tree: Right mainstem bronchus: Anatomically within normal limits Right upper lobe: Anatomically within normal limits Bronchus intermedius: Anatomically within normal limits Right middle lobe: Anatomically within normal limits Right lower lobe: Anatomically within normal limits Findings: No significant findings noted Left bronchial tree: Left mainstem bronchus: Anatomically within normal limits Left upper lobe: Anatomically within normal limits Lingula: Anatomically within normal limits Left lower lobe: Anatomically within normal limits Findings: No significant findings noted Tracheal washing: Performed at the site of the surgical intervention EBL: None Complications: None Follow-up: ASU
[2017-09-24] MEDS ORDERED: DEXTROSE 5% 1000ML 1,000 ML IV SCH (10:00)
[2017-09-24] MEDS ORDERED: NURSING VERBAL MED ORDER ONE ×2 (10:00→10:15)
[2017-09-24] MEDS: MUPIROCIN 2% OINT 22 GM TUBE EXT SCH ×2 (12:26→21:41)
[2017-09-24] MEDS: DOCUSATE SODIUM 100 MG CAP PO SCH ×2 (12:26→21:41)
[2017-09-24] MEDS: LOSARTAN POTASSIUM 25 MG TAB PO SCH (12:27)
[2017-09-24] MEDS: PANTOprazole SOD 40 MG TAB PO SCH (12:27)
[2017-09-24] MEDS: ENOXAPARIN 40 MG/0.4 ML SYR SQ SCH (12:27)
[2017-09-24] MEDS: CITALOPRAM 20 MG TAB PO SCH (12:27)
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
[2017-09-25] MEDS: HYDROCODONE/HOMATROPINE SYRUP 5MG/1.5MG 5ML UDP PO SCH ×2 (01:03→07:22)
[2017-09-25 03:10] VITALS: BP 120/76; PULSE 63; TEMP 36.8; O2SAT 95
[2017-09-25 07:29] VITALS: BP 120/76; PULSE 63; TEMP 36.8; O2SAT 95
[2017-09-25 07:35] VITALS: BP 137/77; PULSE 69; TEMP 36.5; O2SAT 94
[2017-09-25] MEDS: DOCUSATE SODIUM 100 MG CAP PO SCH (09:00)
[2017-09-25] MEDS: ENOXAPARIN 40 MG/0.4 ML SYR SQ SCH (09:00)
--- NOTE | 2017-09-25 09:03 | Discharge Instructions ---
Discharge Instructions Date of Service Sep 25, 2017. Admission Reason for Admission: Tracheal Stenosis, Cough, Sob Discharge Discharge Diagnosis / Problem: Tracheal Stenosis, Cough, Sob Discharge Goals Goal(s): Decrease discomfort, Improve function Activity Recommendations Activity Limitations: as noted below Lifting Limitations: none 1. Do not drive until cleared to do so by Dr Castro. 2. You may shower and clean incision with soap and water. No tub baths. . Instructions / Follow-Up Instructions / Follow-Up 1. Office appointment with Dr. Castro in 1 week. Office will call with date and time of appointment. Go to hospital 1 hour before appointment to have a chest x-ray taken. Current Hospital Diet Patient's current hospital diet: Regular Diet Discharge Diet Recommended Diet: Regular Diet Procedures Procedures Performed: Tracheal Resection Flexible bronchoscopy Pending Studies Studies pending at discharge: no Medical Emergencies . Who to Call and When: Medical Emergencies: If at any time you feel your situation is an emergency, please call 911 immediately. . Non-Emergent Contact Non-Emergency issues call your: Surgeon Call Non-Emergent contact if: you have a fever, your pain is not controlled, wound has increased drainage, you have any medication questions . "Provider Documentation" section prepared by Ashkan Sears. .
[2017-09-25] MEDS: LOSARTAN POTASSIUM 25 MG TAB PO SCH (09:24)
[2017-09-25] MEDS: CITALOPRAM 20 MG TAB PO SCH (09:24)
[2017-09-25] MEDS: PANTOprazole SOD 40 MG TAB PO SCH (09:24)
[2017-09-25] MEDS: MUPIROCIN 2% OINT 22 GM TUBE EXT SCH (09:25)
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
== END 2017-09-25 10:30 | disposition home health service (06) | DRG 164 ==
LOC: C.ACU 07:50 → EDBEDREQ 10:55 → C.2T 11:20 → ENRESERV 12:36 → C.MSICU 09-20 14:44 → CANRESERV 09-22 08:03 → ENRESERV 09-22 08:03 → C.MSW 09-22 09:23
PROVIDERS: ADMIT Internal Medicine Critical Care Medicine; ATTEND Surgery
PROC: 0B9 Respiratory System, Drainage (ICD-10-PCS; 2017-09-18)
PROC: 0BJ08ZZ Inspection of Tracheobronchial Tree, Via Natural or Artificial Opening Endoscopic (ICD-10-PCS; principal; 2017-09-20 08:30)
PROC: 0BQ10ZZ Repair Trachea, Open Approach (ICD-10-PCS; principal; 2017-09-20 08:30)
PROC: 0BB10ZZ Excision of Trachea, Open Approach (ICD-10-PCS; principal; 2017-09-20 08:30)
PROC: 0B9 Respiratory System, Drainage (ICD-10-PCS; 2017-09-24)
DX: J39.8 Other specified diseases of upper respiratory tract (principal); F32.1 Major depressive disorder, single episode, moderate; S12.8XXS Fracture of other parts of neck, sequela; J38.6 Stenosis of larynx; R05 Cough; S06.9X9S Unspecified intracranial injury with loss of consciousness of unspecified duration, sequela; N18.3 Chronic kidney disease, stage 3 (moderate); I12.9 Hypertensive chronic kidney disease with stage 1 through stage 4 chronic kidney disease, or unspecified chronic kidney disease; R13.10 Dysphagia, unspecified; E66.9 Obesity, unspecified; J98.4 Other disorders of lung; N52.9 Male erectile dysfunction, unspecified; K21.9 Gastro-esophageal reflux disease without esophagitis; F10.11 Alcohol abuse, in remission; Y83.8 Other surgical procedures as the cause of abnormal reaction of the patient, or of later complication, without mention of misadventure at the time of the procedure; Z87.891 Personal history of nicotine dependence; Y92.019 Unspecified place in single-family (private) house as the place of occurrence of the external cause; Z22.322 Carrier or suspected carrier of Methicillin resistant Staphylococcus aureus; V89.0XXS Person injured in unspecified motor-vehicle accident, nontraffic, sequela; Z68.39 Body mass index [BMI] 39.0-39.9, adult

== ENCOUNTER → 2017-10-03 | Outpatient (CLI) | payer OTHER ==
--- NOTE | 2017-10-03 13:33 | DIAGNOSTIC IMAGING REPORT ---
CHEST 2 VIEWS ROUTINE CLINICAL HISTORY: J39.8 Tracheal stenosis COMPARISON STUDY: 09/23/2017 FINDINGS: The heart is normal in size. There is improved aeration of the lung bases. There is no lobar consolidation. There is no pneumothorax. There is blunting of the left lateral costophrenic angle consistent with a minimal pleural effusion.[ IMPRESSION: Improved aeration of the lung bases. Suspected trace left pleural effusion. Electronically signed by: Tre Orellana M.D. 10/03/2017 1:32 PM Dictated Date/Time: 10/03/2017 1:29 PM
== END | disposition home or self-care (01) ==
LOC: C.RAD1850 13:11
PROVIDERS: ATTEND Surgery
DX: J39.8 Other specified diseases of upper respiratory tract (principal)

== ENCOUNTER → 2017-10-17 | Day surgery (SDC) | payer OTHER ==
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
[~2017-10-17] VITALS: Ht 177.8 cm; Wt 114.5 kg
[2017-10-17] VITALS (7 sets, daily range): BP systolic 118–148; BP diastolic 78–89; PULSE 51–59; TEMP 36.5–36.6; O2SAT 94–98; Ht 177.8 cm; Wt 114.5 kg
[~2017-10-17] MED LIST changes: +FENTANYL CITRATE INJ 50 MCG/1 ML 2 ML VIAL IV ONE; +LIDOCAINE 4% INH SOLN 4 ML BTL TOP ONE; +LIDOCAINE HCL 2% LOCAL 50ML VIAL INSTIL ONE; +LIDOCAINE VISCOUS 2% 100ML TOP ONE; +MIDAZOLAM HCL 5 MG/ML 1 ML VIAL IV ONE
--- NOTE | 2017-10-17 10:01 | Pre Sedation Assessment ---
Pre Sedation Assessment General Date of Sedation: Oct 17, 2017. Vital Signs Past 12 Hours Date Time Temp Pulse Resp B/P (MAP) Pulse Ox O2 Delivery O2 Flow Rate FiO2 10/17/17 09:15 36.6 57 18 148/85 (106) 96 Room Air Review Cardiovascular: regular rate, rhythm, no edema, no gallop, no JVD, no murmur, normal peripheral pulses Lungs: chest non-tender, lungs clear, normal breath sounds, no respiratory distress, no accessory muscle use Pre-Sedation Airway Assessment Smoking Status: Former Smoker Hx of Sleep Apnea: No Hx of difficult intubation: No Short Thick Neck: Yes Thyro-mental Distance: > 3 Finger Breadths Oral Cavity: WNL Mallampati Classification: Class II ASA Classification: Class II NPO Status Date of Last Intake of Fluids: Oct 16, 2017 Time of Last Intake of Fluids: 1700 Date of Last Intake of Solids: Oct 16, 2017 Time of Last Intake of Solids: 1700 Procedure Planning Contraindications for Sedation: None Current Medications Reviewed: Yes Notes The planned sedation has been discussed with the patient. Informed Consent was obtained. I have identified the patient, determined the appropriateness of sedation and have assessed the patient immediately prior to the procedure. All medicine(s) and interventions are by my order.
--- NOTE | 2017-10-17 10:38 | Post Sedation Assessment ---
Post Sedation Assessment General Date of Sedation Oct 17, 2017. Vital Signs: Vital Signs Past 12 Hours Date Time Temp Pulse Resp B/P (MAP) Pulse Ox O2 Delivery O2 Flow Rate FiO2 10/17/17 10:35 61 17 124/87 98 Oxymask 6 10/17/17 10:30 67 16 140/100 98 Oxymask 6 10/17/17 10:25 60 21 135/95 97 Oxymask 6 10/17/17 10:21 60 21 130/90 100 Oxymask 6 10/17/17 09:15 36.6 57 18 148/85 (106) 96 Room Air Post Procedure Recovery Score Activity: (2) Moves 4 extremities * Respiration: (2) Deep breath/cough Circulation: (2) +/-20% PreAnes Value Consciousness: (1) Arouseable (by name) Oxygen Saturation: (1) O2 needed for >90% Post Anesthesia Score: 8 Discharge Sedation Level of Care: Fast Track Phase II Post Sedation Plan On clinical assessment, the patient appears to have tolerated the sedation without complications. Patient is recovering as anticipated. Patient will continue to be monitored by nursing and may be discharged when sedation discharge criteria are met per below protocol. Upon Completions of procedure and additional 15 minutes continue every 5 minute vital signs and the P.A.R. score; then discharge to a Phase I or Fast Track to Phase II per the following guidelines: * Discharge Patient to appropriate Phase II area if PAR is 8 or greater or return to pre- procedure baseline. The post - procedure orders will be as directed. * If PAR score is less than 8 or not return to pre-procedure baseline then patient will follow Phase I monitoring till PAR is reached for Phase II. The Phase I may be done in procedure room or may call to secure a Phase I area. * If naloxone or flumazenil are used for reversal, hold in Phase I for an additional 60 -120 minutes before discharge to Phase II. Please call the Sedation Physician to re-evaluate and complete post-note for discharge to Phase II area. Do NOT discharge from procedure sedation or Phase 1 until post- sedation evaluation note is complete by procedure /sedation MD Sedation Discharge Instructions to be given to the patient at discharge to home.
--- NOTE | 2017-10-17 10:42 | Bronchoscopy Procedure Note ---
Bronchoscopy Procedure Note Procedure: Bronchoscopy, conscious sedation, bronchial lavage Consent: Obtained through the patient placed into the chart Pre-procedural diagnosis: tracheal stenosis Post-procedural diagnosis: tracheal stenosis Start time: 1025 End time: 1035 Total time: minutes Analgesia: 2% liquid lidocaine: Via nebulizer 4% gel lidocaine: Via right naris 2% liquid lidocaine: Via bronchoscopy Sedation: Versed IV: 3mg Fentanyl IV: 75 g Procedure: The Olympus video bronchoscope was used for this procedure and passed down through the right naris Right naris/posterior naris/posterior oropharynx: Anatomically within normal limits Glottis: Anatomically within normal limits Vocal cords: Proper abduction and abduction, anatomically within normal limits Subglottis: Anatomically within normal limits Trachea: 4cm below the level of the true vocal cords baljeet of resection., well healing no signs of break-down, granulomatous tissue 1mm proximal-distal distance airway lumen 7mm lateral diameter and 6mm anterior-posterior diameter Marissa: Anatomically within normal limits Right bronchial tree: Right mainstem bronchus: Anatomically within normal limits Right upper lobe: Anatomically within normal limits Bronchus intermedius: Anatomically within normal limits Right middle lobe: Anatomically within normal limits Right lower lobe: Anatomically within normal limits Findings: No significant findings noted Left bronchial tree: Left mainstem bronchus: Anatomically within normal limits Left upper lobe: Anatomically within normal limits Lingula: Anatomically within normal limits Left lower lobe: Anatomically within normal limits Findings: No significant findings noted EBL: none Complications: None Follow-up: [facility]
--- NOTE | 2017-10-17 10:44 | Discharge Instructions ---
Discharge Instructions Date of Service Oct 17, 2017. Admission Reason for Admission: Tracheal Stenosis Discharge Discharge Diagnosis / Problem: tracehal stenosis Discharge Goals Goal(s): Diagnostic testing Activity Recommendations Activity Limitations: resume your previous activity Exercise/Sports Limitations: as tolerated Shower/Bathe: tomorrow . Instructions / Follow-Up Instructions / Follow-Up Follow [facility] and [facility] at scheduled visits Current Hospital Diet Patient's current hospital diet: Discharge Diet Recommended Diet: Regular Diet Procedures Procedures Performed: BRONCHOSCOPY, Conscious Sedation Pending Studies Studies pending at discharge: no Medical Emergencies . Who to Call and When: Medical Emergencies: If at any time you feel your situation is an emergency, please call 911 immediately. . Non-Emergent Contact Non-Emergency issues call your: [employer] Consultant Call Non-Emergent contact if: temperature is above 101 . . "Provider Documentation" section prepared by Hung Meehan. .
== END | disposition home or self-care (01) ==
LOC: C.ACU 08:33
PROVIDERS: ATTEND Internal Medicine Critical Care Medicine
DX: J39.8 Other specified diseases of upper respiratory tract (principal); R13.10 Dysphagia, unspecified; K21.9 Gastro-esophageal reflux disease without esophagitis; F32.1 Major depressive disorder, single episode, moderate; Z94.5 Skin transplant status; Z87.891 Personal history of nicotine dependence; Z87.820 Personal history of traumatic brain injury; Z82.49 Family history of ischemic heart disease and other diseases of the circulatory system; Z82.3 Family history of stroke; Z80.42 Family history of malignant neoplasm of prostate

== ENCOUNTER → 2017-11-07 | Outpatient (CLI) | payer OTHER ==
[~2017-11-07] MED LIST changes: -FENTANYL CITRATE INJ 50 MCG/1 ML 2 ML VIAL IV ONE; -LIDOCAINE 4% INH SOLN 4 ML BTL TOP ONE; -LIDOCAINE HCL 2% LOCAL 50ML VIAL INSTIL ONE; -LIDOCAINE VISCOUS 2% 100ML TOP ONE; -MIDAZOLAM HCL 5 MG/ML 1 ML VIAL IV ONE; -RANI150T85 PO
[2017-11-07 15:45] LABS: BASO % 0.3 %; BASO ABS # 0.02 K/uL (0-0.2); EOS % 1.2 %; EOS ABS # 0.07 K/uL (0-0.5); HEMATOCRIT 39.4 % (42-52); HEMOGLOBIN 13.5 g/dL (14.0-18.0); IG# 0.01 K/uL (0.00-0.02); LYMPH % 29.9 %; LYMPH ABS # 1.81 K/uL (1.2-3.4); MEAN CELL VOLUME 80.1 fL (80-100); MEAN CORPUSCULAR HEMOGLOBIN 27.4 pg (25-34); MEAN CORPUSCULAR HGB CONC 34.3 g/dl (32-36); MEAN PLATELET VOLUME 9.6 fL (7.4-10.4); MONO % 7.9 %; MONO ABS # 0.48 K/uL (0.11-0.59); NEUT % 60.5 %; NEUT ABS # 3.66 K/uL (1.4-6.5); PLATELET COUNT 246 K/uL (130-400); RED CELL DISTRIBUTION WIDTH CV 13.6 % (11.5-14.5); RED CELL DISTRIBUTION WIDTH SD 39.8 fL (36.4-46.3); WHITE BLOOD COUNT 6.05 K/uL (4.8-10.8)
[2017-11-07 15:54] LABS: PTT PATIENT 25.2 SECONDS (21.0-31.0)
[2017-11-07 16:29] LABS: ALT/SGPT 37 U/L (12-78); AST/SGOT 20 U/L (15-37); BLOOD UREA NITROGEN 15 mg/dl (7-18); CALCIUM 8.4 mg/dl (8.5-10.1); CARBON DIOXIDE 25 mmol/L (21-32); CREATININE 1.53 mg/dl (0.60-1.40); GLUCOSE 126 mg/dl (70-99); POTASSIUM 3.9 mmol/L (3.5-5.1); SODIUM 136 mmol/L (136-145)
[2017-11-07 16:32] LABS: ALKALINE PHOSPHATASE 114 U/L (45-117); TOTAL PROTEIN 8.1 gm/dl (6.4-8.2)
== END | disposition home or self-care (01) ==
LOC: C.LAB 14:39
PROVIDERS: ATTEND Internal Medicine Critical Care Medicine
DX: J98.4 Other disorders of lung (principal); R06.02 Shortness of breath; J39.8 Other specified diseases of upper respiratory tract